=== PATIENT | female | born 1995 | race Caucasian/White ===

== ENCOUNTER 2018-10-17 15:44 | Emergency (ER) | payer SELFPAY ==
[~2018-10-17] VITALS: Ht 162.6 cm; Wt 66.0 kg
[2018-10-17 15:57] VITALS: BP 113/83
== END 2018-10-17 21:15 | disposition left against medical advice (07) ==
LOC: ER 15:44
DX: Z53.21 Procedure and treatment not carried out due to patient leaving prior to being seen by health care provider (principal)